=== PATIENT | male | born 1955 | race Caucasian/White ===

== ENCOUNTER 2019-04-28 11:58 | Emergency (ER) | payer BC ==
--- NOTE | 2019-04-28 12:47 | EDM.PDOC ---
ED HPI GENERAL MEDICAL PROBLEM - General Chief Complaint: Neuro Symptoms/Deficits Stated Complaint: MEMORY ISSUES Time Seen by Provider: 04/28/19 12:30 Source of Information: Reports: Patient, Family History Limitations: Reports: No Limitations - History of Present Illness INITIAL COMMENTS - FREE TEXT/NARRATIVE: 63 yo [place] presents with his for abrupt onset about 10:30 am today of short term memory loss. He was in the process of trying to change a trailer tire when this began. He has no HIGGINS. He has a hx of borderline HTN on no meds for this. His says she has not noticed any other changes in him. He has no problem remembering things that happened before today. His only med is a statin for hypercholesterolemia. Under a lot of stress at work lately. Onset: Today Onset Date: 04/28/19 Onset Time: 10:30 Duration: Hour(s):, Constant Location: Reports: Head Quality: Reports: Other (no pain) Severity: Severe (short term memory loss) Improves with: Reports: None Worsens with: Reports: Other (unknown, no recent stressors other than work stressors. 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 (see below) (none) - Related Data Allergies Allergy/AdvReac Type Severity Reaction Status Date / Time Penicillins Allergy Cannot Verified 04/28/19 12:04 Remember Home Meds: Home Meds atorvaSTATin [Lipitor] 04/28/19 [History] Past Medical History Cardiovascular History: Reports: High Cholesterol Respiratory History: Reports: Pneumonia, Recurrent Musculoskeletal History: Reports: Fracture Social & Family History - Tobacco Use Smoking Status *Q: Never Smoker - Caffeine Use Caffeine Use: Reports: Coffee - Alcohol Use Days Per Week of Alcohol Use: 7 Number of Drinks Per Day: 3 Total Drinks Per Week: 21 - Recreational Drug Use Recreational Drug Use: No ED ROS GENERAL - Review of Systems Review Of Systems: See Below Constitutional: Reports: No Symptoms HEENT: Reports: No Symptoms Respiratory: Reports: No Symptoms Cardiovascular: Reports: No Symptoms Endocrine: Reports: No Symptoms GI/Abdominal: Reports: No Symptoms : Reports: No Symptoms Musculoskeletal: Reports: No Symptoms Skin: Reports: No Symptoms Neurological: Reports: Other (short term memory loss) Psychiatric: Reports: No Symptoms ED EXAM, NEURO - Physical Exam Exam: See Below Exam Limited By: No Limitations General Appearance: Alert, WD/WN, No Apparent Distress Eye Exam: Bilateral Eye: Normal Inspection Ears: Normal External Exam, Normal Canal, Hearing Grossly Normal, Normal TMs Nose: Normal Inspection, No Blood Throat/Mouth: Normal Inspection, Normal Lips, Normal Oropharynx, Normal Voice, No Airway Compromise Head Exam: Atraumatic, Normocephalic Neck: Normal Inspection Respiratory/Chest: No Respiratory Distress, Lungs Clear, Normal Breath Sounds, No Accessory Muscle Use Cardiovascular: Normal Peripheral Pulses, Regular Rate, Rhythm, No Edema GI/Abdominal: Normal Bowel Sounds, Soft, Non-Tender Neurological: Alert, Normal Mood/Affect, CN II-XII Intact, No Motor/Sensory Deficits. No: Oriented x 3 (not oriented to time) Back Exam: Normal Inspection. No: CVA Tenderness (R), CVA Tenderness (L) Extremities: Normal Inspection, Normal Range of Motion, Non-Tender, No Pedal Edema Psychiatric: Normal Affect, Normal Mood Skin Exam: Warm, Dry, Intact, Normal Color, No Rash Course - Vital Signs Text/Narrative:: Short term memory loss resolved here in the ER, still not able to remember those occurrences today during his memory lapse interval. Last Recorded V/S: Last Vital Signs Temp 36.3 C 04/28/19 12:13 Pulse 85 04/28/19 12:13 Resp 18 04/28/19 12:13 BP 170/86 H 04/28/19 12:13 Pulse Ox 97 04/28/19 12:13 - Orders/Labs/Meds Labs: Laboratory Tests 04/28/19 04/28/19 04/28/19 Range/Units 12:55 12:55 12:56 WBC 7.7 (4.5-11.0) K/uL RBC 4.65 (4.30-5.90) M/uL Hgb 14.9 (12.0-15.0) g/dL Hct 43.7 (40.0-54.0) % MCV 94 (80-98) fL MCH 32 H (27-31) pg MCHC 34 (32-36) % Plt Count 228 (150-400) K/uL Sodium 144 (140-148) mmol/L Potassium 3.7 (3.6-5.2) mmol/L Chloride 105 (100-108) mmol/L Carbon Dioxide 28 (21-32) mmol/L Anion Gap 11.1 (5.0-14.0) mmol/L BUN 8 (7-18) mg/dL Creatinine 1.0 (0.8-1.3) mg/dL Est Cr Clr Drug Dosing 76.59 mL/min Estimated GFR (MDRD) > 60 (>60) Glucose 90 (74-106) mg/dL Calcium 9.6 (8.5-10.1) mg/dL Troponin I < 0.017 (0.000-0.056) ng/mL Urine Color Yellow (YELLOW) Urine Appearance Clear (CLEAR) Urine pH 7.5 (5.0-8.0) Ur Specific [place] 1.020 (1.008-1.030) Urine Protein Negative (NEGATIVE) mg/dL Urine Glucose (UA) Negative (NEGATIVE) mg/dL Urine Ketones Negative (NEGATIVE) mg/dL Urine Occult Blood Negative (NEGATIVE) Urine Nitrite Negative (NEGATIVE) Urine Bilirubin Negative (NEGATIVE) Urine Urobilinogen 0.2 (0.2-1.0) EU/dL Ur Leukocyte Esterase Negative (NEGATIVE) Urine RBC Not seen (0-5) Urine WBC Not seen (0-5) Ur Epithelial Cells Few Amorphous Sediment Not seen Urine Bacteria Not seen Urine Mucus Few - Radiology Interpretation Free Text/Narrative:: CT head-neg CT Results Date: 04/28/19 Departure - Departure Time of Disposition: 13:53 Disposition: Home, Self-Care 01 Condition: Fair Clinical Impression: Short-term memory loss HTN (hypertension) Qualifiers: Hypertension type: essential hypertension Qualified Code(s): I10 - Essential ( primary) hypertension - Discharge Information *PRESCRIPTION DRUG MONITORING PROGRAM REVIEWED*: No *COPY OF PRESCRIPTION DRUG MONITORING REPORT IN PATIENT BRITANY: No Instructions: Hypertension, [id number] Referrals: PCP,None [Primary Care Provider] - Forms: ED Department Discharge Additional Instructions: Take a baby aspirin today and every day until seen by your provider. Get a BP recheck soon. Avoid salt, and alcohol. No driving today. 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 Return as needed.
--- NOTE | 2019-04-28 13:35 | CRLCT ---
Indication: 2.5 hrs of severe short term memory loss Technique: CT of the head without contrast. Bone and soft tissue algorithms. Comparison: None Findings: No acute intracranial hemorrhage or extra-axial collection. No evidence of acute cortical infarction. No mass effect or midline shift. Normal cerebral volume. The ventricles are normal in size, shape and contour. There is normal correa and white matter differentiation. The orbital contents are normal. Paranasal sinuses are well aerated. Mastoid air cells are clear. No calvarial fractures. No lytic or sclerotic osseous lesions within the calvarium or skull base. Scalp and other imaged soft tissue structures are normal. Impression: No acute intracranial abnormality. Please note that all CT scans at this facility use dose modulation, iterative reconstruction, and/or weight-based dosing when appropriate to reduce radiation dose to as low as reasonably achievable. Dictated by Paul Monterroso MD @ Apr 28 2019 1:31PM Signed by Dr. Paul Monterroso @ Apr 28 2019 1:34PM
== END 2019-04-28 14:00 | disposition home or self-care (01) ==
LOC: JP.ED 11:58
DX: R41.3 Other amnesia (principal); I10 Essential (primary) hypertension; E78.00 Pure hypercholesterolemia, unspecified; Z88.0 Allergy status to penicillin; Z79.899 Other long term (current) drug therapy
CPT/HCPCS: 36415; 70450; 80048; 81001; 84484; 85027; 99283